=== PATIENT | female | born 1955 ===

== ENCOUNTER 2016-12-04 12:07 | Inpatient (IN) | payer BC ==
--- NOTE | ~2016-12-04 | HP ---
History And Physical [id number] [place]. [address] NAME: JEANNE HEATH : 57 STATUS : ADM Ricki PAT#: [id number] AGE: 61 ADM/REG DATE : 12/04/16 MR#: [id number] REPORT SERV DATE: 12/04/16 DICTATED BY: DELISA OLMOS DATE: 12/04/16 REPORT STATUS : Draft TRANSCRIBED BY: MODL DATE: 12/04/16 DATE OF ADMISSION: 12/04/2016 CHIEF COMPLAINT: Shortness of breath. HISTORY OF PRESENT ILLNESS: The patient is a very pleasant 61-year-old female, past medical history of diabetes type 2 insulin dependent and asthma, who presents after having approximately a month of progressive shortness of breath. 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 The patient has tried her typical breathing treatments without any resolve and upon arrival, was noted to be hypoxic in the mid to lower 80s, improved after having breathing treatments and increased oxygen, but not currently at her baseline with decreased exercise tolerance. The patient has also had increased frequency in urination, positive sputum production, variable blood sugars particularly over the last few months. Symptoms of dyspnea have been intermittent, but moderate. No pain, chest pain, fever, nausea, vomiting, diarrhea. Symptoms are worse with exertion or relieved by rest. Symptoms still currently present and reproducible, but the patient does have improved O2 exercise tolerance. REVIEW OF SYSTEMS: Ten-point review of systems negative except for that noted in the HPI. PAST MEDICAL HISTORY: Diabetes type 2, asthma. SURGICAL HISTORY: x2, hernia, cyst on chest wall, right ovarian cyst removal. FAMILY HISTORY: Heart disease, non-Hodgkin lymphoma in son. SOCIAL HISTORY: Never smoked. No alcohol or illicits. 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 ALLERGIES: NO KNOWN DRUG ALLERGIES. HOME MEDICATIONS: Albuterol, Breo, Atarax, Advil, NovoLog, Lantus, Refresh. PHYSICAL EXAMINATION: VITAL SIGNS: Patient's blood pressure 157/78, pulse 90, respirations 16, O2 sats 86 on room air, improved to 97 on 1-2 L. GENERAL: Mild discomfort, mild pursed lip breathing, but no acute distress. EYES: No scleral icterus. EOMI. ENT: Nares patent. Dry mucous membranes. RESPIRATORY: End-expiratory wheeze bilaterally. Mild increased AP diameter. CHEST: Equal chest expansion. CV: Trace bilateral edema. Mildly tachycardic. No rubs. No JVD. GI: Soft, nontender, nondistended. Bowel sounds positive. : Deferred. MUSCULOSKELETAL: Moves all extremities x4. History And Physical [address] [place]. [address] NAME: JEANNE HEATH : 57 STATUS : ADM Ricki PAT#: [id number] AGE: 61 ADM/REG DATE : 12/04/16 MR#: [id number] REPORT SERV DATE: 12/04/16 DICTATED BY: DELISA OLMOS DATE: 12/04/16 REPORT STATUS : Draft TRANSCRIBED BY: JHON DATE: 12/04/16 SKIN: Warm, dry. LYMPH: No cervical or supraclavicular lymphadenopathy. HEME: No bleeding or bruising. NEURO: Alert and oriented. No asterixis. Moves all extremities x4. PSYCH: Appropriate mood and affect. Calm, pleasant. PERTINENT LABS: Creatinine 0.98, sodium 136, potassium 5.6, WBC 7.5, BNP 99.1, troponin negative. Blood sugar 389. Chest x-ray, no acute findings. ASSESSMENT AND PLAN: 1. Acute asthma exacerbation. 2. Hyperglycemia with insulin-dependent diabetes. 3. Mild hyperkalemia. 4. Acute hypoxia. 5. Mild urinary tract infection. PLAN: For acute asthma exacerbation and positive eosinophilia with environmental exposures, long history of asthma, O2, DuoNebs. If it is not quite corrected and has had prolonged duration, we will give IV steroids at this time until 24 hours, transition to p.o. as tolerated. Flutter valve, and check urine and strep Legionella. Hyperglycemia with insulin-dependent diabetes, Levemir. Treat #1: Anticipate increase with steroids. The patient has had lows at home. Diabetic education. Mild hyperkalemia, insulin, albuterol, and monitor. Acute hypoxia, likely decompensated secondary to mild asthma exacerbation. Anticipate improvement with treatment #1. Mild UTI. No WBC. Check procalcitonin. Treat diabetes. The patient is symptomatic with increased frequency, has had three to four urination episodes with frequency while in the emergency room. Dual coverage with asthma and UTI with Rocephin. DDN/MODL Delisa Olmos MD / [id number] CC: Delisa Olmos MD
--- NOTE | ~2016-12-04 | DS ---
Discharge Summary [address] [facility] [place]. [address] NAME: JEANNE CAGLE : 57 STATUS : DIS IN PAT#: [id number] AGE: 61 ADM/REG DATE : 12/04/16 MR#: [id number] REPORT SERV DATE: 12/11/16 DICTATED BY: DELISA CAMILO DATE: 12/07/16 REPORT STATUS : Draft TRANSCRIBED BY: MODL DATE: 12/07/16 ADMISSION DATE: 12/04/2016 DISCHARGE DATE: 12/07/2016 DISCHARGE DIAGNOSES: 1. Acute asthma exacerbation. 2. Hyperglycemia with insulin-dependent diabetes. 3. Mild hyperkalemia. 4. Hyperlipidemia. 5. Acute hypoxic respiratory failure, likely acute on chronic. 6. Rule out urinary tract infection. DISCHARGE DISPOSITION: Home with family on O2 2 L due to hypoxia with ambulatory desats; rest 90%, on exercise 82% with recovery of 93% to 97% on 2 L. Diabetic education also consulted. HOME MEDICATIONS: Atorvastatin 20 mg one tab p.o. daily new medication; Lantus changed to 20 units b.i.d. with NovoLog change 20 units before meals; Atarax 50 mg one tab p.o. t.i.d.; prednisone 40 mg one tab p.o. daily x2 days then 20 mg one tab p.o. x2 days, then 10 mg one tab p.o. x3 days, then 5 mg one tab p.o. x2 days then stop; albuterol home dose; Ventolin 2 puffs as needed; Breo Ellipta 1 puff inhalation daily; SofLens and eyes as needed; Augmentin 875/125 b.i.d. x3 additional days. DISCHARGE INSTRUCTIONS: Follow up with PCP for followup of asthma and diabetes type 2. Information given for diabetic outpatient clinic and follow with Dr. Ghotra in 2 weeks for asthma and O2 dependence, possible outpatient sleep study. Labs and imaging to be sent to PCP and risk control officer Dr. Ghotra. ADDITIONAL LABS AND IMAGING: A1c 10.3. CTA chest; mild bibasilar atelectasis and minimal left basilar atelectasis. No PE, otherwise consider normal. Creatinine at discharge is 0.96. Negative Strep and Legionella. Troponin negative. BNP 99.1. Urinalysis; trace leukocyte esterase with only 7 wbc's, occasional bacteria. ABG; pH 7.38, pCO2 of 47, pO2 of 61, bicarb 27.6 on admission. Procalcitonin 0.07, cholesterol 335, HDL 39 with LDL 256, and triglycerides 203. HOSPITAL COURSE: Please see H and P for complete details. HISTORY OF PRESENT ILLNESS: Briefly, Ms. Cagle is a very pleasant, 61-year-old female with past history of asthma, diabetes difficult control, reported typical blood sugars in the 300 to 400s, did not take insulin on day of arrival and had blood sugars 389 Discharge Summary [address] [address] NAME: JEANNE CAGLE : 57 STATUS : DIS IN PAT#: [id number] AGE: 61 ADM/REG DATE : 12/04/16 MR#: [id number] REPORT SERV DATE: 12/11/16 DICTATED BY: DELISA CAMILO DATE: 12/07/16 REPORT STATUS : Draft TRANSCRIBED BY: MODChristian DATE: 12/07/16 to 450. She at arrival was in acute asthma exacerbation with the patient reports has been progressively worsening over the last month but recalls at work having dust exposure. 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 She had been trying conservative treatment at home but has had progressive worsening up until she came to the emergency room. In the emergency room, she was hypoxic in 80s but recovered with oxygen and breathing treatments. She had audible wheezing at that time. She was started on initial IV steroids and resultant taper to p.o. The patient did have elevations of blood sugars with anticipatory rise, however, due to patient's home schedule of insulin concern for bottoming out as the patient has had sugars as low as 40s, the patient was titrated as patient's steroids continue to be titrated down. The patient's blood sugars did become more improved to 160s to low 200s and will continue to be optimized with her PCP while as steroids continue to be tapered down over the next few days. A prolonged taper was chosen due to extensive hypoxia. CTA was performed to rule out PE but I anticipate this had been progressive chronic hypoxia that has been occurring. The patient has been instructed to follow with PCP and additionally with her risk control officer Dr. Ghotra as the patient is now having new O2 requirements. To follow up with PCP before returning back to work. O2 was obtained prior to the patient's discharge as the patient was feeling well at rest and even with ambulation, however, due to hypoxia and with subsequent recovery, it was thought best for patient to have O2 at home. The patient agreeable, understands current plan, and avoidance of triggering factors such as dust mites with barrier protection such as mask. Greater than 30 minutes was spent with discharge planning, education, med reconciliation. Thank you for allowing us to assist in the care of this patient. DICTATED BY: MD GOLDY Longoria/JHON Delisa Camilo MD / [id number] CC: MD Aleksey Longoria M.D.
[2016-12-04 11:02] LABS: BASOPHILS 0.5 %; BASOPHILS ABSOLUTE 0.04 10/3/uL (0.0-0.16); EOSINOPHILS 9.9 %; EOSINOPHILS ABSOLUTE 0.74 10/3/uL (0.0-0.53); ER CBC TAT 0 Hrs 12 Mins; HEMATOCRIT 44.6 % (36.0-48.0); HEMOGLOBIN 14.7 g/dL (12.0-16.0); IMMATURE GRANULOCYTES 0.1 %; IMMATURE GRANULOCYTES ABSOLUTE 0.01 10/3/uL (0.0-0.11); LYMPHOCYTES 33.4 %; LYMPHOCYTES ABSOLUTE 2.51 10/3/uL (0.67-4.30); MANUAL DIFF NO %; MEAN CORPUSCULAR HEMOGLOB 30.9 pg (26.0-34.0); MEAN CORPUSCULAR VOLUME 93.7 fL (80-100); MEAN PLATELET VOLUME 11.5 fL (9.2-13.0); MONOCYTES 7.3 %; MONOCYTES ABSOLUTE 0.55 10/3/uL (0.21-1.20); NEUTROPHILS 48.8 %; NEUTROPHILS ABSOLUTE 3.66 10/3/uL (2.02-8.40); PLATELET COUNT 156 10/3/uL (150-400); RBC DISTRIBUTION WIDTH 13.6 % (12.0-16.0); RED CELL COUNT 4.76 10/6/uL (4.0-5.6); WHITE BLOOD CELLS 7.5 10/3/uL (4.5-10.5)
[2016-12-04 11:37] LABS: A/G RATIO 0.7 (0.7-1.9); ALBUMIN 3.2 G/DL (3.5-5.0); ALKALINE PHOSPHATASE 106 U/L (45-117); BUN (BLOOD UREA NITROGEN) 15 MG/DL (6-23); CALCIUM, SERUM 9.2 MG/DL (8.5-10.4); CHLORIDE, SERUM 101 MMOL/L (96-112); CO2 (CARBON DIOXIDE) 30 MMOL/L (24-34); CREATININE 0.98 MG/DL (0.55-1.02); GFR AFRICAN AMERICAN 73 ML/MIN (>=60); GFR NON AFRICAN AMERICAN 63 ML/MIN (>=60); GLOBULIN 4.4 G/DL (2.5-4.1); SGPT(ALT) 20 U/L (5-65); TOTAL BILIRUBIN 0.5 MG/DL (0-1.2); TOTAL PROTEIN 7.6 G/DL (6.0-8.5); TROPONIN I <0.02 NG/ML (<0.05)
[2016-12-04 11:41] LABS: GLUCOSE, SERUM 389 MG/DL (60-99)
[2016-12-04 11:45] LABS: ACETONE NEG
[2016-12-04 12:15] LABS: POTASSIUM, SERUM 4.8 MMOL/L (3.5-5.3); SGOT(AST) 15 U/L (5-40)
[2016-12-04 12:17] LABS: SODIUM, SERUM 136 MMOL/L (135-148)
[2016-12-04 12:44] LABS: ASCORBIC ACID (UR NOT ORDER) NEG (NEG); BILIRUBIN, URINE NEGATIVE (NEG); KETONE, URINE NEGATIVE (NEG); LEUKOCYTE ESTERASE(NOT OR TRACE (NEG); NITRITE (URINE) NEG (NEG); WBC (NOT ORDERED) (RFLEX) 7 (0-5)
[2016-12-04 12:47] LABS: ER URINALYSIS TAT 0 Hrs 33 Mins
[2016-12-04] MEDS ORDERED: NOVOLOG SC (13:11)
[2016-12-04] MEDS ORDERED: LANTUS SC (13:11)
[2016-12-04] MEDS ORDERED: ALBUTEROL0.083 % INH (13:12)
[2016-12-04] MEDS ORDERED: VENTOLIN HFA INH (13:13)
[2016-12-04] MEDS ORDERED: ATARAX50B PO (13:17)
[2016-12-04] MEDS ORDERED: BREO ELLIPTA 21 EACH INH (13:17)
[2016-12-04] MEDS ORDERED: ADVIL PO (13:18)
[2016-12-04] MEDS ORDERED: REFRES1 OPH (13:18)
[2016-12-04 14:04] LABS: ALLENS TEST Pos; BE (BASE EXCESS) 1.8 MEQ/L (0 +/- 2.5); CARBOXYHEMOGLOBIN 1.9 % (0-3); HCO3 (ACTUAL BICARBONATE) 27.6 MEQ/L (23-27); HEMOBLOGIN CONTENT 14.9 G/DL (12-16); INSTRUMENT SERIAL # 8087; METHEMOGLOBIN 0.2 % (0-3); O2 CONTENT 18.6 VOL% (18-24); OPERATOR ID 14335; PCO2 (CO2 TENSION) 47 MMHG (35-45); PO2 (O2 TENSION) 61 MMHG (79-93); SAMPLE Arterial; pH 7.38 (7.37-7.43)
[2016-12-04 17:20] LABS: ASCORBIC ACID (UR NOT ORDER) NEG (NEG); BILIRUBIN, URINE NEGATIVE (NEG); KETONE, URINE TRACE MG/DL (NEG); LEUKOCYTE ESTERASE(NOT OR NEG (NEG); WBC (NOT ORDERED) (RFLEX) 8 (0-5)
[2016-12-05 06:41] LABS: BASOPHILS 0.1 %; BASOPHILS ABSOLUTE 0.01 10/3/uL (0.0-0.16); EOSINOPHILS 0 %; HEMATOCRIT 47.8 % (36.0-48.0); HEMOGLOBIN 15.5 g/dL (12.0-16.0); IMMATURE GRANULOCYTES 0.3 %; IMMATURE GRANULOCYTES ABSOLUTE 0.03 10/3/uL (0.0-0.11); LYMPHOCYTES 13.4 %; LYMPHOCYTES ABSOLUTE 1.55 10/3/uL (0.67-4.30); MEAN CORPUS HGB CONC 32.4 g/dL (32.0-36.0); MEAN CORPUSCULAR HEMOGLOB 30.3 pg (26.0-34.0); MEAN CORPUSCULAR VOLUME 93.5 fL (80-100); MONOCYTES 1.6 %; MONOCYTES ABSOLUTE 0.19 10/3/uL (0.21-1.20); NEUTROPHILS 84.6 %; NEUTROPHILS ABSOLUTE 9.75 10/3/uL (2.02-8.40); PLATELET COUNT 140 10/3/uL (150-400); RBC DISTRIBUTION WIDTH 13.8 % (12.0-16.0); RED CELL COUNT 5.11 10/6/uL (4.0-5.6)
[2016-12-05 06:43] LABS: MANUAL DIFF NO %; WHITE BLOOD CELLS 11.5 10/3/uL (4.5-10.5)
[2016-12-05 07:03] LABS: CALCIUM, SERUM 9.3 MG/DL (8.5-10.4); CHLORIDE, SERUM 101 MMOL/L (96-112); CHOL/HDL RATIO(NOT ORDER) 8.6 (0-5); CHOLESTEROL 335 MG/DL (< 200); CO2 (CARBON DIOXIDE) 27 MMOL/L (24-34); CREATININE 1.21 MG/DL (0.55-1.02); GFR AFRICAN AMERICAN 56 ML/MIN (>=60); GFR NON AFRICAN AMERICAN 49 ML/MIN (>=60); HDL CHOLESTEROL 39 MG/DL (> 49); LDL CHOLESTEROL 256 MG/DL (< 130); NON-HDL CHOLESTEROL 296 MG/DL (< 160); POTASSIUM, SERUM 4.7 MMOL/L (3.5-5.3); SODIUM, SERUM 137 MMOL/L (135-148); TRIGLYCERIDE 203 MG/DL (< 150)
[2016-12-05 07:05] LABS: BUN (BLOOD UREA NITROGEN) 21 MG/DL (6-23); GLUCOSE, SERUM 413 MG/DL (60-99)
[2016-12-05 08:08] LABS: PROCALCITONIN 0.07 ng/mL (<0.5)
[2016-12-05] MEDS ORDERED: LEVAQUIN750 MG PO (09:41)
[2016-12-05] MEDS ORDERED: P10 PO (09:42)
[2016-12-05] MEDS ORDERED: LIPITOR20 PO (09:42)
[2016-12-07 06:00] LABS: BASOPHILS 0.1 %; BASOPHILS ABSOLUTE 0.01 10/3/uL (0.0-0.16); EOSINOPHILS 0.2 %; EOSINOPHILS ABSOLUTE 0.02 10/3/uL (0.0-0.53); HEMATOCRIT 44.3 % (36.0-48.0); HEMOGLOBIN 14.2 g/dL (12.0-16.0); IMMATURE GRANULOCYTES 0.1 %; IMMATURE GRANULOCYTES ABSOLUTE 0.01 10/3/uL (0.0-0.11); LYMPHOCYTES 27.5 %; LYMPHOCYTES ABSOLUTE 2.79 10/3/uL (0.67-4.30); MEAN CORPUS HGB CONC 32.1 g/dL (32.0-36.0); MEAN CORPUSCULAR HEMOGLOB 29.9 pg (26.0-34.0); MEAN CORPUSCULAR VOLUME 93.3 fL (80-100); MEAN PLATELET VOLUME 11.1 fL (9.2-13.0); MONOCYTES 7.4 %; MONOCYTES ABSOLUTE 0.75 10/3/uL (0.21-1.20); NEUTROPHILS 64.7 %; NEUTROPHILS ABSOLUTE 6.56 10/3/uL (2.02-8.40); PLATELET COUNT 158 10/3/uL (150-400); RBC DISTRIBUTION WIDTH 14.3 % (12.0-16.0); RED CELL COUNT 4.75 10/6/uL (4.0-5.6); WHITE BLOOD CELLS 10.1 10/3/uL (4.5-10.5)
[2016-12-07 06:05] LABS: MANUAL DIFF NO %
[2016-12-07 06:13] LABS: CALCIUM, SERUM 9.3 MG/DL (8.5-10.4); CHLORIDE, SERUM 102 MMOL/L (96-112); CREATININE 0.96 MG/DL (0.55-1.02); GFR AFRICAN AMERICAN 75 ML/MIN (>=60); GFR NON AFRICAN AMERICAN 64 ML/MIN (>=60); SODIUM, SERUM 139 MMOL/L (135-148)
[2016-12-07 06:16] LABS: BUN (BLOOD UREA NITROGEN) 27 MG/DL (6-23); CO2 (CARBON DIOXIDE) 32 MMOL/L (24-34); GLUCOSE, SERUM 202 MG/DL (60-99); POTASSIUM, SERUM 4.5 MMOL/L (3.5-5.3)
[2016-12-07] MEDS ORDERED: AUG875 PO (13:28)
[2016-12-07] MEDS ORDERED: LIPITOR20 PO (13:29)
== END 2016-12-07 15:32 | disposition home or self-care (01) | DRG 189 ==
LOC: ER 12:07 → 2SO 13:18
PROVIDERS: Physician Assistant; Student in an Organized Health Care Education/Training Program
DX: J96.21 Acute and chronic respiratory failure with hypoxia (principal); D72.1 Eosinophilia; J45.901 Unspecified asthma with (acute) exacerbation; E11.65 Type 2 diabetes mellitus with hyperglycemia; E87.5 Hyperkalemia; N39.0 Urinary tract infection, site not specified; Z98.890 Other specified postprocedural states; Z82.49 Family history of ischemic heart disease and other diseases of the circulatory system
CPT/HCPCS: 36600; 71010; 71275; 80048; 80053; 80061; 81001; 82009; 82805; 82947; 82962; 83036; 83735; 83880; 84145; 84484; 85025; 87040; 87070; 87205; 87449; 94640; 94668; 99291; A9270-GY; J0456; J2920; J2930; Q9967